=== PATIENT | female | born 1985 | race Caucasian/White ===

== ENCOUNTER 2019-12-27 08:20 | Outpatient (REF) | payer OTHER, SELFPAY ==
[2019-12-27 10:07] LABS: Hemoglobin 13.1 g/dl (12.0-16.0); MANUAL DIFF FLAG SCAN; PLT CLUMP 1; Red Cell Distribution Width 13.7 % (11.0-16.0); SCAN SMEAR FLAG 1
[2019-12-27 10:08] LABS: Basophils Absolute Auto 0.1 X10*3/uL (0.0-0.2); Basophils Percent Auto 0.6 % (0-2); Eosinophils Absolute Auto 0.1 X10*3/uL (0.0-0.4); Eosinophils Percent Auto 1.8 % (0-4); Hematocrit 40.3 % (37-47); Imm Gran Abs Auto 0.04 X10*3/uL (0.00-0.03); Imm Gran Pct Auto 0.5 % (0.0-0.4); Lymphocytes Absolute Auto 2.4 X10*3/uL (1.2-4.9); Lymphocytes Percent Auto 30.8 % (20-40); Mean Corpuscular HGB Conc 32.5 g/dl (31.0-35.0); Mean Corpuscular Hemoglobin 27.2 pg (27.0-33.0); Mean Corpuscular Volume 83.8 fL (80-98); Monocytes Absolute Auto 0.5 X10*3/uL (0.1-1.2); Monocytes Percent Auto 6.9 % (2-11); Neutrophils Absolute Auto 4.6 X10*3/uL (2.0-8.3); Neutrophils Percent Auto 59.4 % (45-73); Platelet Count 285 X10*3/uL (160-400); Red Blood Count 4.81 X10*6/uL (4.20-5.50); White Blood Count 7.7 X10*3/uL (4.8-10.8)
[2019-12-27 10:26] LABS: SLIDE REVIEW VERIFIED
[2019-12-27 10:39] LABS: Alanine Aminotransferase 8 U/L (0-31); Albumin Level 4.5 g/dL (3.5-5.0); Alkaline Phosphatase 58 U/L (39-117); Anion Gap 15 (12-20); Aspartate Amino Transferase 12 U/L (5-31); Bilirubin Total 0.2 mg/dL (0.0-1.0); Blood Urea Nitrogen 12 mg/dL (9-16); C Reactive Protein 2.78 mg/dL (< or = 0.50); Calcium 9.6 mg/dL (8.4-10.2); Carbon Dioxide 21 mmol/L (22-29); Chloride 106 mmol/L (96-108); Estimated Glomerular Filt Rate > 60; Glucose Random 85 mg/dL (60-115); Sodium 138 mmol/L (135-145); Total Protein 8.1 g/dL (6.5-8.0)
[2019-12-27 10:55] LABS: Erythrocyte Sedimentation Rate 21 MM/HR (0-20); Ferritin 12 ng/mL (10-122)
[2019-12-29 08:56] LABS: HBS Num1 20.11 mIU/mL (0-7.99); HBc Num1 0.08 S/CO (0.00-0.79); HBsAGNum1 0.14 S/CO (0.00-0.99); Hepatitis B Core Antibody Nonreactive (Nonreactive); Hepatitis B Surface Antigen Negative (Negative); ~Hepatitis B Surface Antibody REACTIVE (Nonreactive)
[2019-12-29 09:52] LABS: ~Hepatitis C Antibody Nonreactive (Nonreactive)
[2019-12-29 13:52] LABS: EBV-NA IgG Index >600.00 U/mL; EBV-VCA IgG Ab >750.00 U/mL; EBV-VCA IgM Ab <36.00 U/mL
[2019-12-29 20:05] LABS: Vitamin B12 > 2000 pg/mL (200-900)
[2019-12-31 02:56] LABS: Zinc 68 mcg/dL (60-130)
[2019-12-31 05:46] LABS: Hepatitis A Antibody IgM 0.14 Index (0-0.79); ~Hepatitis A Antibody IgM Nonreactive (Nonreactive)
[2020-01-01 13:06] LABS: Vitamin D 25-OH, D2 <4 ng/mL; Vitamin D 25-OH, D3 25 ng/mL; Vitamin D 25-OH, Total 25 ng/mL (30-100)
[2020-01-02 10:37] LABS: Adalimumab Drug Level <0.8 mcg/mL; Anti-Adalimumab Antibody >100 AU (<10)
== END 2019-12-27 08:21 | disposition home or self-care (01) ==
LOC: HO.LAB 08:20
PROVIDERS: Visit Provider Internal Medicine Gastroenterology
DX: K50.80 Crohn's disease of both small and large intestine without complications (principal)
CPT/HCPCS: 36415; 80053; 80145; 82306; 82607; 82728; 83520; 84630; 85025; 85652; 86140; 86664; 86665; 86704; 86706; 86709; 86787; 86803; 87340; 88365

== ENCOUNTER 2019-12-30 08:40 | Outpatient (REF) | payer OTHER, SELFPAY ==
[2019-12-30 11:53] LABS: Vitamin B12 > 2000 pg/mL (200-900)
[2019-12-31 05:39] LABS: HBS Num1 19.92 mIU/mL (0-7.99); ~Hepatitis B Surface Antibody REACTIVE (Nonreactive)
[2020-01-01 09:17] LABS: EBV-VCA IgG Ab >750.00 U/mL; EBV-VCA IgM Ab <36.00 U/mL
[2020-01-06 11:21] LABS: Vitamin D 25-OH, D2 <4 ng/mL; Vitamin D 25-OH, D3 21 ng/mL; Vitamin D 25-OH, Total 21 ng/mL (30-100)
== END 2019-12-30 08:41 | disposition home or self-care (01) ==
LOC: HO.LAB 08:40
PROVIDERS: Visit Provider Internal Medicine Gastroenterology
DX: K50.80 Crohn's disease of both small and large intestine without complications (principal); R76.11 Nonspecific reaction to tuberculin skin test without active tuberculosis
CPT/HCPCS: 82306; 82607; 86664; 86665; 86706

== ENCOUNTER 2019-12-31 20:35 | Outpatient (REF) | payer OTHER, SELFPAY ==
[2020-01-01 11:51] LABS: CDIFF Ag Negative (Negative); CDIFF Internal ctrl Dots and bkg OK (V); CDiff Toxin Negative (Negative)
[2020-01-08 17:17] LABS: Calprotectin, Fecal 614 mcg/g
== END 2019-12-31 20:36 | disposition home or self-care (01) ==
LOC: HO.LNP 20:35
PROVIDERS: Visit Provider Internal Medicine Gastroenterology
DX: K50.80 Crohn's disease of both small and large intestine without complications (principal)
CPT/HCPCS: 83993; 87324; 87449

== ENCOUNTER 2020-01-01 07:06 | Outpatient (REF) | payer OTHER, SELFPAY | END 2020-01-01 07:07 | disposition home or self-care (01) | LOC: HO.LAB 07:06 | PROVIDERS: Visit Provider Internal Medicine Gastroenterology | DX: Z11.1 Encounter for screening for respiratory tuberculosis (principal) | CPT/HCPCS: 86481 ==

== ENCOUNTER 2020-01-16 08:42 | Outpatient (REF) | payer OTHER, SELFPAY ==
--- NOTE | 2020-01-16 10:05 | MR_ITS ---
EXAMINATION: MRI OF THE ABDOMEN AND PELVIS WITH AND WITHOUT CONTRAST CLINICAL INFORMATION: Crohn's disease of the small and large bowel. COMPARISON: None TECHNIQUE: Sagittal, axial and coronal sequences through the abdomen and pelvis with and without contrast. The patient received 7.5 mL of intravenous Gadavist gadolinium contrast. FINDINGS: Lung bases are clear. The liver is normal in size, shape and attenuation. There is an 8 x 12 mm peripheral or subcapsular lesion in the medial segment of the left lobe of the liver. This is low signal on T1 and iso to slightly high signal on T2-weighted sequences. This demonstrates signal loss on out of phase gradient echo sequences and decreased enhancement compared to the remainder of the liver. There are 2 additional liver lesions seen adjacent to the gallbladder. These measure 6 x 9 mm in the left lobe axial image 63 and 7 x 9 mm in the right lobe. These are difficult to visualize on noncontrast-enhanced sequences. These also are most apparent on axial gradient echo out of phase sequences. The larger lesion in the right lobe may be low signal on T1-weighted sequences precontrast. All 3 lesions are most evident on gradient echo out of phase sequences suggestive of signal loss due to intralesional fat and on postgadolinium sequences. This would favor an adenoma. The gallbladder is normal. There is no biliary duct dilatation. The pancreas is normal. The spleen is normal. The adrenal glands and kidneys are normal. The bladder is normal. The uterus and adnexa are normal. There are slightly tethered or angulated loops of distal small bowel in the right lower quadrant and pelvis. There is question of a small focus of wall enhancement and luminal narrowing or mild stricture, for example axial post contrast image 54 - 61 series 24 questionable for active inflammatory bowel disease. There is prominent fat surrounding the distal ileum. There is question of mild wall thickening of the distal colon and rectum. No wall enhancement is seen. There are prominent perirectal lymph nodes. Small and large bowel is otherwise unremarkable. No evidence of obstruction, abscess or fistula is seen. The appendix is not identified. The stomach is unremarkable. No ascites or adenopathy is seen. Vascular structures are unremarkable. No hernia is seen. Bony structures are unremarkable. MR/MR abdomen wo/w con IMPRESSION: Angulated slightly tethered loops of distal small bowel in the right lower quadrant and prominent fat suggestive of evidence of inflammatory bowel disease. There is a short segment of distal ileum that demonstrates mild luminal narrowing and wall enhancement questionable for active disease. Prominent perirectal lymph nodes. Question mild wall thickening of the distal colon and rectum. No wall enhancement of the colon is seen. Three small liver lesions difficult to characterize as not reliably identified on all sequences.
== END 2020-01-16 08:43 | disposition home or self-care (01) ==
LOC: HO.MRI 08:42
PROVIDERS: Visit Provider Internal Medicine Gastroenterology
DX: K50.80 Crohn's disease of both small and large intestine without complications (principal)
CPT/HCPCS: 72197; 74183; A9585

== ENCOUNTER 2020-02-11 11:51 | Outpatient (REF) | payer OTHER, SELFPAY ==
[2020-02-11 12:29] LABS: Basophils Percent Auto 0.3 % (0-2); Eosinophils Absolute Auto 0.1 X10*3/uL (0.0-0.4); Hematocrit 38.2 % (37-47); Hemoglobin 12.6 g/dl (12.0-16.0); Imm Gran Abs Auto 0.04 X10*3/uL (0.00-0.03); Imm Gran Pct Auto 0.4 % (0.0-0.4); Lymphocytes Absolute Auto 2.5 X10*3/uL (1.2-4.9); Lymphocytes Percent Auto 23.1 % (20-40); MANUAL DIFF FLAG SCAN; Mean Corpuscular Hemoglobin 27.5 pg (27.0-33.0); Mean Corpuscular Volume 83.2 fL (80-98); Monocytes Absolute Auto 0.6 X10*3/uL (0.1-1.2); Monocytes Percent Auto 5.4 % (2-11); Neutrophils Absolute Auto 7.5 X10*3/uL (2.0-8.3); Neutrophils Percent Auto 69.8 % (45-73); PLT CLUMP 1; Red Blood Count 4.59 X10*6/uL (4.20-5.50); Red Cell Distribution Width 13.3 % (11.0-16.0); SCAN SMEAR FLAG 1
[2020-02-11 12:48] LABS: Alanine Aminotransferase 10 U/L (0-31); Albumin Level 4.1 g/dL (3.5-5.0); Alkaline Phosphatase 61 U/L (39-117); Anion Gap 11 (12-20); Aspartate Amino Transferase 10 U/L (5-31); Bilirubin Total 0.2 mg/dL (0.0-1.0); Blood Urea Nitrogen 7 mg/dL (9-16); C Reactive Protein 1.87 mg/dL (< or = 0.50); Calcium 8.6 mg/dL (8.4-10.2); Carbon Dioxide 24 mmol/L (22-29); Chloride 105 mmol/L (96-108); Estimated Glomerular Filt Rate > 60; Glucose Random 86 mg/dL (60-115); Platelet Count 375 X10*3/uL (160-400); Potassium 3.4 mmol/l (3.3-5.1); Sodium 137 mmol/L (135-145); Total Protein 7.1 g/dL (6.5-8.0); White Blood Count 10.7 X10*3/uL (4.8-10.8)
[2020-02-11 12:49] LABS: SLIDE REVIEW VERIFIED
== END 2020-02-11 11:52 | disposition home or self-care (01) ==
LOC: HO.MDS 11:51
PROVIDERS: Visit Provider Internal Medicine Gastroenterology
DX: K50.90 Crohn's disease, unspecified, without complications (principal)
CPT/HCPCS: 36415; 80053; 85025; 86140; 96365; J3358

== ENCOUNTER → 2020-05-24 11:14 | Outpatient (BNVA) | payer OTHER, SELFPAY | PROVIDERS: Visit Provider Internal Medicine Gastroenterology ==

== ENCOUNTER 2020-06-01 06:21 | Outpatient (REF) | payer OTHER, SELFPAY ==
[2020-06-01 07:00] LABS: MANUAL DIFF FLAG NO
[2020-06-01 07:07] LABS: Basophils Absolute Auto 0.1 X10*3/uL (0.0-0.2); Basophils Percent Auto 0.7 % (0-2); Eosinophils Absolute Auto 0.3 X10*3/uL (0.0-0.4); Eosinophils Percent Auto 3.7 % (0-4); Hematocrit 38.3 % (37-47); Hemoglobin 12.8 g/dl (12.0-16.0); Imm Gran Abs Auto 0.03 X10*3/uL (0.00-0.03); Imm Gran Pct Auto 0.4 % (0.0-0.4); Lymphocytes Absolute Auto 2.7 X10*3/uL (1.2-4.9); Lymphocytes Percent Auto 38.3 % (20-40); Mean Corpuscular HGB Conc 33.4 g/dl (31.0-35.0); Mean Corpuscular Hemoglobin 27.8 pg (27.0-33.0); Mean Corpuscular Volume 83.1 fL (80-98); Mean Platelet Volume 9.8 fL (9.4-12.3); Monocytes Absolute Auto 0.5 X10*3/uL (0.1-1.2); Monocytes Percent Auto 7.3 % (2-11); Neutrophils Absolute Auto 3.5 X10*3/uL (2.0-8.3); Neutrophils Percent Auto 49.6 % (45-73); Platelet Count 318 X10*3/uL (160-400); Red Blood Count 4.61 X10*6/uL (4.20-5.50); Red Cell Distribution Width 13.9 % (11.0-16.0); White Blood Count 7.1 X10*3/uL (4.8-10.8)
[2020-06-01 07:24] LABS: Alanine Aminotransferase 7 U/L (0-31); Alkaline Phosphatase 63 U/L (39-117); Anion Gap 14 (12-20); Aspartate Amino Transferase 12 U/L (5-31); Bilirubin Total 0.5 mg/dL (0.0-1.0); Blood Urea Nitrogen 9 mg/dL (9-16); Calcium 9.1 mg/dL (8.4-10.2); Carbon Dioxide 21 mmol/L (22-29); Chloride 108 mmol/L (96-108); Estimated Glomerular Filt Rate > 60; Glucose Random 113 mg/dL (60-115); Potassium 3.6 mmol/L (3.3-5.1); Sodium 139 mmol/L (135-145)
[2020-06-01 07:55] LABS: Ferritin 20 ng/mL (10-122); Vitamin D 25-OH Total 42.7 ng/mL (>30)
[2020-06-01 08:13] LABS: Erythrocyte Sedimentation Rate 14 MM/HR (0-20)
[2020-06-02 14:12] LABS: IgA 114 mg/dL (47-310); IgG 1119 mg/dL (600-1640); IgM 30 mg/dL (50-300)
[2020-06-02 22:07] LABS: Transglutaminase Ab IgG 1 U/mL; Transglutaminase IgA 1 U/mL
[2020-06-04 01:12] LABS: Zinc 62 mcg/dL (60-130)
== END 2020-06-01 06:22 | disposition home or self-care (01) ==
LOC: HO.LAB 06:21
PROVIDERS: Visit Provider Internal Medicine Gastroenterology
DX: R10.33 Periumbilical pain (principal); G89.29 Other chronic pain; K50.80 Crohn's disease of both small and large intestine without complications
CPT/HCPCS: 36415; 80053; 80299; 82306; 82542; 82728; 82784; 83516; 84630; 85025; 85652

== ENCOUNTER → 2020-09-17 09:27 | Outpatient (BNVA) | payer OTHER, SELFPAY | PROVIDERS: Visit Provider Internal Medicine Gastroenterology ==

== ENCOUNTER 2020-10-22 08:49 | Outpatient (REF) | payer OTHER, SELFPAY | END 2020-10-22 08:50 | disposition home or self-care (01) | LOC: HO.MDS 08:49 | PROVIDERS: Visit Provider Internal Medicine Gastroenterology | DX: K50.90 Crohn's disease, unspecified, without complications (principal) | CPT/HCPCS: 96365; J3380 ==

== ENCOUNTER 2020-11-05 07:08 | Outpatient (REF) | payer OTHER, SELFPAY | END 2020-11-05 07:09 | disposition home or self-care (01) | LOC: HO.MDS 07:08 | PROVIDERS: Visit Provider Internal Medicine Gastroenterology | DX: K50.90 Crohn's disease, unspecified, without complications (principal) | CPT/HCPCS: 96365; J3380 ==

== ENCOUNTER 2020-12-03 07:17 | Outpatient (REF) | payer OTHER, SELFPAY | END 2020-12-03 07:18 | disposition home or self-care (01) | LOC: HO.MDS 07:17 | PROVIDERS: Visit Provider Internal Medicine Gastroenterology | DX: K50.90 Crohn's disease, unspecified, without complications (principal) | CPT/HCPCS: 96365; J3380 ==

== ENCOUNTER 2020-12-22 06:34 | Outpatient (REF) | payer OTHER, SELFPAY ==
[2020-12-23 08:38] LABS: CDiff Gene PCR NEGATIVE (Negative)
[2020-12-25 13:51] LABS: TS Negative Control Passed; TS Panel A 0; TS Panel B 0; TS Positive Control Passed; TSpotTB Negative (SeeBelow)
[2020-12-30 01:21] LABS: Calprotectin, Fecal 132 mcg/g
== END 2020-12-22 06:35 | disposition home or self-care (01) ==
LOC: HO.LAB 06:34
PROVIDERS: Visit Provider Internal Medicine Gastroenterology
DX: K50.80 Crohn's disease of both small and large intestine without complications (principal); Z11.1 Encounter for screening for respiratory tuberculosis
CPT/HCPCS: 36415; 83993; 86481; 87493

== ENCOUNTER 2020-12-23 06:26 | Outpatient (REF) | payer OTHER, SELFPAY ==
[2020-12-23 06:57] LABS: Basophils Percent Auto 0.5 % (0-2); Eosinophils Absolute Auto 0.1 X10*3/uL (0.0-0.4); Eosinophils Percent Auto 1.6 % (0-4); Hematocrit 35.7 % (37-47); Hemoglobin 11.9 g/dl (12.0-16.0); Imm Gran Abs Auto 0.07 X10*3/uL (0.00-0.03); Imm Gran Pct Auto 0.8 % (0.0-0.4); MANUAL DIFF FLAG SCAN; Mean Corpuscular HGB Conc 33.3 g/dl (31.0-35.0); Mean Corpuscular Hemoglobin 27.8 pg (27.0-33.0); Mean Corpuscular Volume 83.4 fL (80-98); Mean Platelet Volume 9.3 fL (9.4-12.3); Monocytes Absolute Auto 0.5 X10*3/uL (0.1-1.2); Monocytes Percent Auto 6.2 % (2-11); Neutrophils Absolute Auto 3.9 X10*3/uL (2.0-8.3); Neutrophils Percent Auto 44.9 % (45-73); Platelet Count 386 X10*3/uL (160-400); Red Blood Count 4.28 X10*6/uL (4.20-5.50); Red Cell Distribution Width 13.2 % (11.0-16.0); SCAN SMEAR FLAG 1; White Blood Count 8.7 X10*3/uL (4.8-10.8)
[2020-12-23 07:14] LABS: Alanine Aminotransferase 8 U/L (0-31); Alkaline Phosphatase 54 U/L (39-117); Anion Gap 12 (12-20); Aspartate Amino Transferase 9 U/L (5-31); Bilirubin Total 0.4 mg/dL (0.0-1.0); Blood Urea Nitrogen 9 mg/dL (9-16); C Reactive Protein 1.95 mg/dL (< or = 0.50); Calcium 9.1 mg/dL (8.4-10.2); Carbon Dioxide 24 mmol/L (22-29); Chloride 105 mmol/L (96-108); Estimated Glomerular Filt Rate > 60; Glucose Random 94 mg/dL (60-115); Iron 108 mcg/dL (30-160); Percent Iron Saturation 21 % (15-50); Potassium 3.4 mmol/L (3.3-5.1); Sodium 138 mmol/L (135-145); Total Iron Binding Capacity 509 mcg/dL (228-428); Total Protein 7.1 g/dL (6.5-8.0); Unsaturated Iron Binding 401 ug/dL
[2020-12-23 07:21] LABS: SLIDE REVIEW VERIFIED
[2020-12-23 07:27] LABS: Erythrocyte Sedimentation Rate 14 MM/HR (0-20)
[2020-12-23 07:35] LABS: Ferritin 23 ng/mL (10-122); TSH reflex Free T4 3.83 uIU/mL (0.32-4.0); Vitamin D 25-OH Total 23.7 ng/mL (>30)
[2020-12-23 07:53] LABS: Folate 7.9 ng/mL (> or = 4.0); Vitamin B12 265 pg/mL (200-900)
[2020-12-26 15:37] LABS: Zinc 58 mcg/dL (60-130)
[2020-12-28 12:45] LABS: Nicotinamide <20 ng/mL; Vit B3 - Nicotinic Acid <20 ng/mL
[2020-12-28 14:51] LABS: Vitamin C 0.2 mg/dL (0.3-2.7)
[2020-12-29 04:16] LABS: Vitamin A 94 mcg/dL (38-98)
[2020-12-29 17:46] LABS: Vitamin B6 4.3 ng/mL (2.1-21.7)
[2020-12-29 17:56] LABS: Vitamin B5 (Pantothenic Acid) <40 ng/mL (<275)
[2020-12-29 19:01] LABS: Alpha-Tocopherol 17.2 mg/L (5.7-19.9); Beta-Gamma Tocopherol <1.0 mg/L (<=4.3)
[2020-12-30 23:17] LABS: Vitamin K1 246 pg/mL (130-1500)
== END 2020-12-23 06:27 | disposition home or self-care (01) ==
LOC: HO.LAB 06:26
PROVIDERS: Visit Provider Internal Medicine Gastroenterology
DX: K50.80 Crohn's disease of both small and large intestine without complications (principal); K75.81 Nonalcoholic steatohepatitis (NASH)
CPT/HCPCS: 36415; 80053; 82180; 82306; 82607; 82728; 82746; 83540; 84207; 84443; 84446; 84590; 84591; 84597; 84630; 85025; 85652; 86140

== ENCOUNTER 2021-01-28 06:59 | Outpatient (REF) | payer OTHER, SELFPAY | END 2021-01-28 07:00 | disposition home or self-care (01) | LOC: HO.MDS 06:59 | PROVIDERS: Visit Provider Internal Medicine Gastroenterology | DX: K50.90 Crohn's disease, unspecified, without complications (principal) | CPT/HCPCS: 36415; 80280; 82542; 96365; J3380 ==

== ENCOUNTER 2021-03-25 07:35 | Outpatient (REF) | payer OTHER, SELFPAY | END 2021-03-25 07:36 | disposition home or self-care (01) | LOC: HO.MDS 07:35 | PROVIDERS: Visit Provider Internal Medicine Gastroenterology | DX: K50.90 Crohn's disease, unspecified, without complications (principal) | CPT/HCPCS: 96365; J3380 ==

== ENCOUNTER 2021-05-20 07:29 | Outpatient (REF) | payer OTHER, SELFPAY | END 2021-05-20 07:30 | disposition home or self-care (01) | LOC: HO.MDS 07:29 | PROVIDERS: Visit Provider Internal Medicine Gastroenterology | DX: K50.90 Crohn's disease, unspecified, without complications (principal) | CPT/HCPCS: 96365; J3380 ==

== ENCOUNTER 2021-06-22 06:26 | Outpatient (REF) | payer OTHER, SELFPAY ==
[2021-06-22 11:25] LABS: MANUAL DIFF FLAG NO
[2021-06-22 11:45] LABS: Basophils Percent Auto 0.6 % (0-2); Eosinophils Absolute Auto 0.2 X10*3/uL (0.0-0.4); Eosinophils Percent Auto 2.9 % (0-4); Hematocrit 38.3 % (37.0-47.0); Hemoglobin 12.7 g/dl (12.0-16.0); Imm Gran Abs Auto 0.02 X10*3/uL (0.00-0.03); Imm Gran Pct Auto 0.3 % (0.0-0.4); Immature Retic Fraction 9.1 % (3.0-15.9); Lymphocytes Absolute Auto 2.9 X10*3/uL (1.2-4.9); Lymphocytes Percent Auto 44.4 % (20-40); Mean Corpuscular HGB Conc 33.2 g/dl (31.0-35.0); Mean Corpuscular Hemoglobin 28.3 pg (27.0-33.0); Mean Corpuscular Volume 85.3 fL (80.0-98.0); Mean Platelet Volume 10.3 fL (9.4-12.3); Monocytes Absolute Auto 0.5 X10*3/uL (0.1-1.2); Monocytes Percent Auto 7.6 % (2-11); Neutrophils Absolute Auto 2.9 x10*3/uL (2.0-8.3); Neutrophils Percent Auto 44.2 % (45-73); Platelet Count 390 X10*3/uL (160-400); Red Blood Count 4.49 X10*6/uL (4.20-5.50); Red Cell Distribution Width 13.6 % (11.0-16.0); Retic HGB Equivalent 33.3 pg (30.0-35.0); Reticulocyte Percent 1.2 % (0.5-1.8); Reticulocytes Absolute 0.053 X10*6/uL (0.026-0.095); White Blood Count 6.5 X10*3/uL (4.8-10.8)
[2021-06-22 12:20] LABS: TSH reflex Free T4 2.76 uIU/mL (0.32-4.0)
[2021-06-22 12:37] LABS: Erythrocyte Sedimentation Rate 13 MM/HR (0-20)
[2021-06-22 12:42] LABS: Alanine Aminotransferase 11 U/L (0-31); Alkaline Phosphatase 58 U/L (39-117); Anion Gap 11 (12-20); Aspartate Amino Transferase 12 U/L (5-31); Bilirubin Total 0.5 mg/dL (0.0-1.0); Blood Urea Nitrogen 9 mg/dL (9-16); C Reactive Protein 1.59 mg/dL (< or = 0.50); Calcium 9.1 mg/dL (8.4-10.2); Carbon Dioxide 23 mmol/L (22-29); Chloride 107 mmol/L (96-108); Cholesterol 192 mg/dL; Estimated Glomerular Filt Rate > 60; Glucose Fasting 89 mg/dL (60-99); HDL Cholesterol 86 mg/dL; Iron 48 mcg/dL (30-160); LDL Cholesterol Calculated 94 mg/dl; Percent Iron Saturation 11 % (15-50); Potassium 4.1 mmol/L (3.3-5.1); Sodium 137 mmol/L (135-145); Total Iron Binding Capacity 442 mcg/dL (228-428); Triglycerides 63 mg/dL; Unsaturated Iron Binding 394 ug/dL
[2021-06-27 14:15] LABS: Prometheus Anser VDZ SEE REPORT IN EMR
== END 2021-06-22 06:27 | disposition home or self-care (01) ==
LOC: HO.HMGCLDS 06:26
PROVIDERS: PCP Internal Medicine; Visit Provider Internal Medicine Gastroenterology
DX: Z00.00 Encounter for general adult medical examination without abnormal findings (principal); K50.80 Crohn's disease of both small and large intestine without complications; K75.81 Nonalcoholic steatohepatitis (NASH)
CPT/HCPCS: 36415; 80053; 80061; 80280; 82542; 83540; 84443; 85025; 85045; 85652; 86140

== ENCOUNTER 2021-07-01 07:13 | Outpatient (REF) | payer OTHER, SELFPAY | END 2021-07-01 07:14 | disposition home or self-care (01) | LOC: HO.MDS 07:13 | PROVIDERS: Visit Provider Internal Medicine Gastroenterology | DX: K50.80 Crohn's disease of both small and large intestine without complications (principal) | CPT/HCPCS: 96365; J3380 ==

== ENCOUNTER → 2021-08-04 07:00 | Outpatient (REF) | payer OTHER, SELFPAY ==
--- NOTE | 2021-08-04 07:07 | CA_ITS ---
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 Study Quality: Good ECG Rhythm: Sinus Conclusions: - The left ventricular systolic function is normal. The calculated ejection fraction is 66% by biplane method. - No obvious valvular pathology seen on this study. Findings Left Ventricle Normal left ventricular cavity size. There is normal left ventricular wall thickness. The left ventricular systolic function is normal. The calculated ejection fraction is 66% by biplane method. There is no evidence of regional wall motion abnormalities. Diastolic function is normal for age. LV peak global longitudinal strain -22.6% (normal). Right Ventricle Normal right ventricular cavity size and systolic function. Atria Both atria are normal in size. Aortic Valve There is a normal trileaflet aortic valve. There is no aortic valve stenosis. There is no aortic valve regurgitation. Mitral Valve The mitral valve appears normal. There is trace mitral valve regurgitation. There is no mitral valve stenosis. Pulmonic Valve The pulmonic valve is likely normal. Tricuspid Valve Normal tricuspid valve structure. There is trace tricuspid valve regurgitation. The pulmonary artery systolic pressure is normal. Great Vessels The asc aorta is normal in size. Venous The inferior vena cava is normal in size and collapses greater than 50% with inspiration. Pericardium/Pleural There is no evidence of pericardial effusion. Prior Study Comparison No prior study available for comparison. Recommendations, Care & Conclusions No obvious valvular pathology seen on this study. Measurements 2D Linear Measurements IVSd: 0.44 0.6-0.9/0.6-1.0 cm LVIDd: 4.92 3.9-5.3/4.2-5.9 cm LVIDd Index: 2.81 2.4-3.2/2.2-3.1 cm/m2 LVIDs: 3.00 2.0-3.6 cm LVPWd: 0.39 0.7-1.1 cm LA Diam: 3.20 2.7-3.8/3.0-4.0 cm LAIDs Index: 1.83 1.5-2.3 cm/m2 LV Mass: 73.85 67-162/88-224 g LV Mass Index: 42.20 43-95/49-115 g/m2 LVOT Diam: 1.90 3.0+(-)1.3 cm 2D Systolic Function EF 4C: 67.40 >55% EF 2C: 65.70 >55% EF BiP: 65.90 >55% Mitral Valve MV Pk E: 0.99 MV PK A: 0.48 MV Decel Time: 163.00 E/A: 2.00 E'Lateral: 12.50 E'Medial: 9.68 E/E' Med: 10.20 E/E' Lat: 7.90 PHT: 48.00 MVA PHT: 4.58 Decel Travis: 6.08 Aortic Valve AoV Pk Gavin: 1.33 AoV Mn Gavin: 0.95 AoV VTI: 0.28 AoV Pk Grad: 7.00 Aov Mn Grad: 4.00 IVIS Cont.VTI: 2.28 LVOT LVOT Pk Gavin: 1.12 LVOT Mn Gavin: 0.84 LVOT VTI: 0.22 LVOT Pk Grad: 5.00 LVOT Mn Grad: 3.00 LVOT Diam: 1.90 LVOT Area: 2.84 Diastolic Function MV Pk E: 0.99 MV Pk A: 0.48 E/A: 2.00 E'Medial: 9.68 E/E' Med: 10.20 E' Laterial: 12.50 E/E' Lat: 7.90 Right Ventricle TAPSE (mm): 22.40 TVS' Gavin: 11.70 Tricuspid Valve RA Press: 3.00 Great Vessels Aorta Sinus of Valsalva: 2.46 2.0-3.[address] Ridge: 2.56 1.7-3.4 cm Ao Asc: 2.80 2.1-3.4 cm Ao Desc: 1.70 Pulmonary Veins Pulm Vein S/D 1.20 Pulmonary Valve PV Pk Gavin: 1.08 Peak PV Grad: 5.00 Updated in Other Vendor System with Status of Final Reginaldo Allred MD electronically signed on 08/06/2021 12:37:40 PM with status of Final
== END ==
LOC: HO.CARD 07:00
PROVIDERS: PCP Internal Medicine; Visit Provider Internal Medicine
DX: R00.2 Palpitations (principal); R00.0 Tachycardia, unspecified
CPT/HCPCS: 93306; 93356

== ENCOUNTER → 2021-08-12 10:57 | Outpatient (BNVA) | payer OTHER, SELFPAY | PROVIDERS: PCP Internal Medicine; Visit Provider Internal Medicine Gastroenterology | DX: E55.9 Vitamin D deficiency, unspecified (principal) ==

== ENCOUNTER 2021-10-14 09:40 | Outpatient (REF) | payer OTHER, SELFPAY ==
[2021-10-14 10:58] LABS: Hemoglobin 13.4 g/dl (12.0-16.0); Mean Corpuscular HGB Conc 32.7 g/dl (31.0-35.0); Mean Corpuscular Hemoglobin 27.7 pg (27.0-33.0); Mean Corpuscular Volume 84.7 fL (80.0-98.0); Mean Platelet Volume 9.8 fL (9.4-12.3); Platelet Count 395 X10*3/uL (160-400); Red Blood Count 4.84 X10*6/uL (4.20-5.50); Red Cell Distribution Width 13.6 % (11.0-16.0); White Blood Count 6.6 X10*3/uL (4.8-10.8)
[2021-10-14 11:37] LABS: TSH reflex Free T4 1.21 uIU/mL (0.32-4.0)
[2021-10-19 15:42] LABS: Metanephrine, Free <25 pg/mL (<=57); Normetanephrines, Free 79 pg/mL (<=148); Total Metanephrine, Free 79 pg/mL (<=205)
== END 2021-10-14 09:41 | disposition home or self-care (01) ==
LOC: HO.LAB 09:40
PROVIDERS: PCP Internal Medicine; Visit Provider Internal Medicine Cardiovascular Disease
DX: Z00.00 Encounter for general adult medical examination without abnormal findings (principal); R00.2 Palpitations
CPT/HCPCS: 36415; 83835; 84443; 85027

== ENCOUNTER → 2021-11-10 07:45 | Outpatient (REF) | payer OTHER, SELFPAY ==
--- NOTE | 2021-11-10 07:47 | HM_ITS ---
TEST PERFORMED: Cardiac event monitoring. REQUESTING PHYSICIAN: Dr. Eller. ENROLLMENT PERIOD: 11/10/2021 to 12/10/2021; 30 days. FINDINGS: In the above monitoring period, underlying rhythm is sinus and sinus tachycardia. Ventricular rate ranged from 69 to 155 beats per minute. There is rare supraventricular and ventricular ectopy with minimal burden. Symptoms documented include chest pain, palpitations, shortness of breath, racing, fluttering at different times. These correlate with sinus rhythm and sinus tachycardia. CONCLUSION: Study positive for sinus rhythm, sinus tachycardia, rare supraventricular and ventricular ectopy. Reginaldo Allred MD HS/CHIARA / [id number] MTDD
--- NOTE | 2021-11-10 07:47 | CA_ITS ---
Acquisition Time: 2021-11-10 08:04:41 Total Exercise Time: 00:07:34 Test Indications: CP, SOB Medications: SEE CHART Protocol: LORRIE Max HR: 164 BPM 88% of Pred: 186 BPM Max BP: 130/062 mmHG Max Work Load: 9.4 METS Exercise stress test with exercise 7 min 34 sec of Lorrie protocol, achieving 88% MPHR with request to stop due to fatigue, with report of mild sob and a tight feeling in chest, denies chest pain, pressure or palpitations, without arrythmia, with normotensive response to exercise, without EKG changes meeting criteria for ischemia. In recovery her sob and chest tightness improved and resolved. She does report hx of asthma. Test reviewed with Dr Allred Referred By: Yaniv Eller Overread By: LEONIE RAPHAEL
== END ==
LOC: HO.CARD 07:45
PROVIDERS: Visit Provider Internal Medicine Cardiovascular Disease
DX: R00.2 Palpitations (principal)
CPT/HCPCS: 93017; 93270

== ENCOUNTER 2021-12-20 09:29 | Day surgery (SDC) | payer OTHER, SELFPAY ==
[2021-12-15 14:22] VITALS: BMI 26.4
--- NOTE | 2021-12-19 09:38 | P.CONAN_ITS ---
Documented by User: Licha Fu NP 12/19/21 09:41 HPI - Anesthesia Eval Consult details Narrative: 36yo F for Upper Endoscopy and Colonoscopy PMFSH Active Problems Active Problems: All Active Problems (Updated 08/12/21 @ 12:37 by Uriel Serna MD) Early satiety (Acute) Vitamin D deficiency (Acute) Plantar wart, left foot (Acute) Tachycardia (Acute) Palpitations (Acute) Normal pelvic exam (Acute) ADHD (Acute) Bipolar 1 disorder (Acute) Annual physical exam (Acute) Crohn's disease of both small and large intestine (Acute) Past Medical History Medical History ADHD Anal fissure Annual physical exam Bipolar 1 disorder Crohn's disease of both small and large intestine Normal pelvic exam Palpitations Plantar wart, left foot Tachycardia Family History Family History Father Arthritis Substance use disorder Mental health disorder Mother History of cancer Celiac disease Surgical History Surgical History History of colonoscopy Hx of endoscopy Social History Social History Household Members: Significant Other Household Members Other:: works in [place], will get in 07/2021 Housing: Apartment Alcohol intake: current Alcohol intake frequency: a few times a month Patient Tobacco Use Status: Never used Tobacco e-Cigarette/Vaping Use: Never Used Use of substances other than those prescribed or required for medical reasons: No Are you DNR?: No Advance Directives: No Advance Directives Information Provided: Yes service: No Current occupational status: employed Cognitive needs: No Hearing needs: No Vision needs: No Meds Allergies Allergy/AdvReac Type Severity Reaction Status Date / Time clindamycin AdvReac Mild Difficulty Verified 08/12/21 10:57 Swallowing Home Medications Medication Instructions Recorded Confirmed Last Taken Type aripiprazole 2 mg tablet (Abilify) 2 mg PO BEDTIME 12/26/19 12/20/21 Unknown History dextroamphetamine-amphetamine 5 mg 20 mg PO DAILY 12/26/19 12/20/21 Unknown History tablet (Adderall) lamotrigine 25 mg tablet 25 mg PO DAILY 09/17/20 12/20/21 Unknown History vedolizumab 300 mg intravenous 300 mg IV Q6W 06/21/21 12/20/21 Unknown History solution (Entyvio) Exam Exam Date and Time: December 19, 2021 0938 Height,Weight and Vital Signs: Height 5 ft 4 in Weight 70 kg Pertinent Lab Results Pertinent Lab Results: Laboratory Tests 06/22/21 10/14/21 06:55 09:54 WBC 6.6 Hgb 13.4 Hct 41.0 Plt Count 395 Sodium 137 Potassium 4.1 D Chloride 107 Carbon Dioxide 23 BUN 9 Creatinine 0.71 Assessment and Plan Assessment Anesthesia Assessment: Chart Reviewed Documented by User: Kashmir Mccullough MD 12/20/21 10:26 [facility] Past Medical History Medical History ADHD Anal fissure Annual physical exam Bipolar 1 disorder Crohn's disease of both small and large intestine Normal pelvic exam Palpitations Plantar wart, left foot Tachycardia Family History Family History Father Arthritis Substance use disorder Mental health disorder Mother History of cancer Celiac disease Family history of problems with anesthesia: No Surgical History Surgical History History of colonoscopy Hx of endoscopy History of Problems with Anesthesia: No Social History Social History Household Members: Significant Other Household Members Other:: works in [place], will get in 07/2021 Housing: Apartment Alcohol intake: current Alcohol intake frequency: a few times a month Patient Tobacco Use Status: Never used Tobacco e-Cigarette/Vaping Use: Never Used Use of substances other than those prescribed or required for medical reasons: No Are you DNR?: No Advance Directives: No Advance Directives Information Provided: Yes service: No Current occupational status: employed Cognitive needs: No Hearing needs: No Vision needs: No Meds Allergies Allergy/AdvReac Type Severity Reaction Status Date / Time clindamycin AdvReac Mild Difficulty Verified 08/12/21 10:57 Swallowing Home Medications Medication Instructions Recorded Confirmed Last Taken Type aripiprazole 2 mg tablet (Abilify) 2 mg PO BEDTIME 12/26/19 12/20/21 Unknown History dextroamphetamine-amphetamine 5 mg 20 mg PO DAILY 12/26/19 12/20/21 Unknown History tablet (Adderall) lamotrigine 25 mg tablet 25 mg PO DAILY 09/17/20 12/20/21 Unknown History vedolizumab 300 mg intravenous 300 mg IV Q6W 06/21/21 12/20/21 Unknown History solution (Entyvio) Exam Airway Mallampati Class: I TM Dist: >3cm Neck ROM: Full Assessment and Plan Assessment Anesthesia Assessment: Anesthesia Plan Discussed Final Anesthetic Review Family History of Problems with Anesthesia: No History of Problems with Anesthesia: No NPO: Yes ASA Class: II Final Preanesthetic Review: No Changes in Pt Med Stat, Meds/Allgs Chart Reviewed, Consent Obtained/Reviewed and Anes Risks/Benef Reviewed Patient Risk: Low Procedure Risk: Low Anesthetic Plan Anesthetic Plan: MAC: Disposition: Standard PACU
[2021-12-20 10:00] VITALS: BP 101/64; PULSE 73; RESP 16; TEMP 36.6; O2SAT 98; BMI 26.9
[2021-12-20 10:11] LABS: UPreg QC Valid YES; Urine Pregnancy NEGATIVE (NEGATIVE)
--- NOTE | 2021-12-20 10:26 | P.HPSUR_ITS ---
Pre-Procedural Eval Section A Date of Service: 12/20/21 Section B Chief Complaint: Early satiety,crohn's disease Relevant Family History (Specify if Yes): No Relevant Social History: None Present Medications: see Short Stay Collaborative assessment Medical History: Significant History (ADHD Anal fissure Annual physical exam Bipolar 1 disorder Crohn's disease of both small and large intestine Normal pel mahi exam Palpitations Plantar wart, left foot Tachycardia) History of Previous Operations: Relevant previous surgery/procedure and date(s) (History of colonoscopy Hx of endoscopy) Allergies: Allergies Allergy/AdvReac Type Severity Reaction Status Date / Time clindamycin AdvReac Mild Difficulty Verified 08/12/21 10:57 Swallowing Review of Systems Sugical H&P ROS: Negative: Constitution, Cardiovascular, Respiratory, Neurological, Psychiatric, Hem-Onc, Allergic/Immunologic, Gastrointestinal, Genitourinary, Musculoskeletal, Integumentary, Endocrine and Eyes/Ears/Nose/Throat Exam Surgical H&P Exam: Normal: HEENT, Normal: Heart, Normal: Lungs, Normal: Extremities, Normal: Abdomen, Normal: Skin and Normal: Neurological Plan Diagnosis/Plan: Unchanged I have reviewed the history and physical and performed a pertinent physical examination on my patient. No changes have occurred unless specified.
--- NOTE | 2021-12-20 11:10 | W.PM.OPN ---
Operative Note Operative Note Date of Service: 12/20/21 Narrative: Operative Information Procedure Description: EGD, Colonoscopy Indication: early satiety and crohns Anesthesia: MAC FLEXIBLE TRANSORAL UPPER GASTROINTESTINAL ENDOSCOPY AND COLONOSCOPY PROCEDURE NOTE UPPER ENDOSCOPY Consent: Indications for the procedure and potential complications of bleeding, perforation, reaction to medications and missed diagnosis were discussed with the patient and informed consent was obtained. Instrument: Olympus GIF H 190 J mid size upper endoscope Monitoring: Vital signs and clinical assessment, continuous EKG monitoring, Pulse oximetry, Carbon Dioxide monitoring and blood pressure monitoring were done throughout the procedure. Procedure: The patient was placed in the left lateral decubitis position and pre-procedure medications were administered and a bite block was placed. The endoscope was inserted into the mouth and advanced under direct vision to the third part of duodenum. A careful inspection was made as the upper endoscope was withdrawn including a retroflexed examination of the proximal stomach; Findings and interventions are described below. Findings: Larynx:normal Esophagus: GE junction at 37 cm, diaphragm hiatus at 37 cm, mild esophagitis at GEJ, bx taken from here and distal and proximal esophagus in separate jars Stomach: Mild erythematous mucosa. Biopsies were obtained. Grade 2 flap valve on retroflexed examination of the cardia. Peristalsis was seen but seemed reduced. The pylorus was stretched with balloon with resistance felt at around 18 mm. Duodenum: Normal bulb and descending duodenum, bx taken, bulb seemed compressed. Intervention: Biopsies as noted above, balloon dilation COLONOSCOPY Instrument: Olympus variable stiffness pediatric scope 190L Colonoscopy Monitoring: Vital signs and clinical assessment, continuous EKG monitoring, Pulse oximetry, Carbon Dioxide monitoring and blood pressure monitoring were done throughout the procedure. Colon withdrawal time was 12 minutes. Procedure: The patient was placed in the left lateral decubitis position and pre-procedure medications were administered. After a digital rectal examination of the ano-rectum, the video colonoscope was inserted into the rectum and advanced through the colon to the cecum/TI. The colonoscope was slowly withdrawn in a retrograde panoramic fashion and the colon mucosa was carefully examined including a retroflexed view of the rectum. Findings and interventions are described below. Procedure Difficulty:easy Findings: Terminal Ileum-normal, bx taken random bx taken from right, transverse, left and rectal areas Cecum:normal Ascending Colon: normal Transverse Colon -normal Descending Colon:normal Sigmoid Colon: normal Rectum: Retroflexion with small internal hemorrhoids, grade I Anorectum - normal Colon preparation: [place] Bowel Preparation Scale Right colon; 3 Transverse colon: 3 Left colon; 3 (0 = Unprepared colon segment with mucosa not seen due to solid stool that cannot be cleared. 1 = Portion of mucosa of the colon segment seen, but other areas of the colon segment not well seen due to staining, residual stool and/or opaque liquid. 2 = Minor amount of residual staining, small fragments of stool and/or opaque liquid, but mucosa of colon segment seen well. 3 = Entire mucosa of colon segment seen well with no residual staining, small fragments of stool or opaque liquid) Impression and Post Procedure Diagnosis: Endoscopy Findings: gastritis esophagitis Colonoscopy Findings: internal hemorrhoids Plan: Await Pathology results Repeat Colonoscopy in 1-2 years or earlier if clinically indicated High fiber diet leaflet avoid straining at stool, epsom salts and sitz bath, anusol supps or cream can consider GES and duplex to r/o SMA syndrome or celiac axis compression if ongoing upper GI sx Above findings were reviewed with the patient and relevant handouts were provided if indicated.
[2021-12-20 12:11] VITALS: BP 100/62; PULSE 70; RESP 16; TEMP 36.2; O2SAT 100
[2021-12-20 12:26] VITALS: BP 115/52; PULSE 80; RESP 16; O2SAT 99
[2021-12-20 12:41] VITALS: BP 112/73; PULSE 76; RESP 18; TEMP 36.2; O2SAT 100
== END 2021-12-20 13:27 | disposition home or self-care (01) ==
PROVIDERS: Nurse Practitioner; PCP Internal Medicine; Visit Provider Internal Medicine Gastroenterology
PROC: (CPT 45380; principal; 2021-12-20 11:10)
DX: K50.80 Crohn's disease of both small and large intestine without complications (principal); K64.0 First degree hemorrhoids; R68.81 Early satiety; K29.50 Unspecified chronic gastritis without bleeding; K20.80 Other esophagitis without bleeding; K44.9 Diaphragmatic hernia without obstruction or gangrene; E55.9 Vitamin D deficiency, unspecified; F31.9 Bipolar disorder, unspecified; F90.9 Attention-deficit hyperactivity disorder, unspecified type; R00.0 Tachycardia, unspecified; R00.2 Palpitations; Z79.899 Other long term (current) drug therapy; Z88.1 Allergy status to other antibiotic agents
CPT/HCPCS: 45380; 43245; 43239; 81025; 88305; 88342; C1726; J2250

== ENCOUNTER 2022-01-31 11:54 | Outpatient (REF) | payer OTHER, SELFPAY ==
[2022-02-02 12:56] LABS: TS Negative Control Passed; TS Panel A 0; TS Panel B 0; TS Positive Control Passed; TSpotTB Negative (Negative)
== END 2022-01-31 11:55 | disposition home or self-care (01) ==
LOC: HO.MDS 11:54
PROVIDERS: Visit Provider Internal Medicine Gastroenterology
DX: K50.80 Crohn's disease of both small and large intestine without complications (principal)
CPT/HCPCS: 36415; 86481; 96365; J3380

== ENCOUNTER 2022-02-07 08:26 | Outpatient (REF) | payer OTHER, SELFPAY ==
--- NOTE | ~2022-02-07 | US_ITS ---
EXAMINATION: ULTRASOUND SMA AND DUPLEX ARTERIAL AND VENOUS SYSTEM. CLINICAL INFORMATION: Epigastric pain. COMPARISON: None TECHNIQUE: Routine Doppler ultrasound imaging of abdominal aorta and branches was performed FINDINGS: The abdominal aorta is of normal caliber with proximal peak systolic velocity proximal SMA and measures 1 50 cm/second. Peak systolic velocity distal to SMA measures 90 cm/second. Celiac artery appears patent with a peak systolic velocity of 1 77 cm/second in inspiration supine and 147/second in inspiration upright view. Superior mesenteric artery proximal measures 2 20 cm/second, midsegment measures 85 cm/second and distal segment measures 79 cm/second. Inferior mesenteric artery peak systolic velocity measures 93 cm/second. Splenic artery peak systolic velocity measures 1 39 cm/second Hepatic artery peak systolic velocity measures 1 38 cm/second. US/US SMA IMPRESSION: Normal abdominal aorta caliber and velocity. Normal caliber celiac SMA, MARC and normal velocities with no's suspicion for stenosis especially in SMA. Normal caliber splenic and hepatic artery with normal peak systolic velocity.
== END 2022-02-07 08:27 | disposition home or self-care (01) ==
LOC: HO.US 08:26
PROVIDERS: Visit Provider Internal Medicine Gastroenterology
DX: R10.13 Epigastric pain (principal)
CPT/HCPCS: 93976

== ENCOUNTER 2022-03-14 14:47 | Outpatient (REF) | payer OTHER, SELFPAY | END 2022-03-14 14:48 | disposition home or self-care (01) | LOC: HO.MDS 14:47 | PROVIDERS: Visit Provider Internal Medicine Gastroenterology | DX: K50.80 Crohn's disease of both small and large intestine without complications (principal) | CPT/HCPCS: 96365; J3380 ==

== ENCOUNTER 2022-04-27 09:58 | Outpatient (REF) | payer OTHER, SELFPAY | END 2022-04-27 09:59 | disposition home or self-care (01) | LOC: HO.MDS 09:58 | PROVIDERS: Visit Provider Internal Medicine Gastroenterology | DX: K50.80 Crohn's disease of both small and large intestine without complications (principal) | CPT/HCPCS: 96365; J3380 ==

== ENCOUNTER 2022-06-08 07:16 | Outpatient (REF) | payer OTHER, SELFPAY | END 2022-06-08 07:17 | disposition home or self-care (01) | LOC: HO.MDS 07:16 | PROVIDERS: Visit Provider Internal Medicine Gastroenterology | DX: K50.80 Crohn's disease of both small and large intestine without complications (principal) | CPT/HCPCS: 96365; J3380 ==

== ENCOUNTER 2022-07-18 12:20 | Outpatient (REF) | payer OTHER, SELFPAY | END 2022-07-18 12:21 | disposition home or self-care (01) | LOC: HO.MDS 12:20 | PROVIDERS: Visit Provider Internal Medicine Gastroenterology | DX: K50.80 Crohn's disease of both small and large intestine without complications (principal) | CPT/HCPCS: 96365; J3380 ==

== ENCOUNTER 2022-08-29 12:47 | Emergency (ER) | payer OTHER, SELFPAY ==
[2022-08-29 13:25] VITALS: BP 118/88; PULSE 88; RESP 16; TEMP 36.5; O2SAT 100; BMI 28.5
--- NOTE | 2022-08-29 13:26 | ED_ITS ---
HPI - GI Bleed General Chief complaint: GI Bleed Stated complaint: Blood In Stool Time Seen by Provider: 08/29/22 16:00 Source: patient, RN notes reviewed and old records reviewed Mode of arrival: ambulatory Limitations: no limitations History of Present Illness HPI Narrative: 37-year-old female with past medical history significant for Crohn's disease presents for evaluation of abdominal pain, bloody bowel movements. Patient reports that she noticed some lower abdominal pain that was more severe 2 days ago on Sunday. She states that her abdomen ?felt firm. ? She states after having a few bowel movements her pain lessened and her abdomen became soft again She reports that she is currently on Entyvio treatments with Dr. Serna the office and her next treatment is this 09/01/2022. She states that this morning between 8:00 a.m. and 30 this afternoon she had 6 episodes of bright red bloody diarrhea She reports mild rectal pain Patient denies any history abdominal surgeries She called her GI office and was referred to the ER Related Data Home Medications Medication Instructions Recorded Confirmed aripiprazole 2 mg tablet (Abilify) 2 mg PO BEDTIME 12/26/19 12/20/21 dextroamphetamine-amphetamine 5 mg 20 mg PO DAILY 12/26/19 12/20/21 tablet (Adderall) lamotrigine 25 mg tablet 25 mg PO DAILY 09/17/20 12/20/21 vedolizumab 300 mg intravenous 300 mg IV Q6W 06/21/21 12/20/21 solution (Entyvio) Previous Rx's Medication Instructions Recorded hyoscyamine sulfate 0.125 mg 0.125 mg PO BID-QID PRN dyspepsia 12/28/20 tablet (Levsin) #30 tabs L norgest/E estradiol-E estrad 1 tab PO DAILY #182 ea 06/21/21 0.15 mg-30 mcg (84)/10 mcg(7) tabs,3mos (Seasonique) pantoprazole 20 mg tablet,delayed 20 mg PO DAILY 90 days #90 tabs 01/26/22 release hydrocortisone 2.5 % topical cream 1 appl MS BID 5 days #30 grams 08/29/22 with perineal applicator (Anusol-HC) Allergies Allergy/AdvReac Type Severity Reaction Status Date / Time clindamycin AdvReac Mild Difficulty Verified 08/29/22 13:25 Swallowing Review of Systems Constitutional: Constitutional: Reports as per HPI, Denies chills, Denies fatigue, Denies fever(s) and Denies headache(s) ENT: Denies headache(s) Cardiovascular: Cardiovascular: Denies chest pain and Denies dyspnea Respiratory: Respiratory: Denies cough and Denies dyspnea Gastrointestinal: Gastrointestinal: Reports abdominal pain, Denies melena, Reports hematochezia, Denies constipation, Reports diarrhea and Denies vomiting Genitourinary: Genitourinary: Denies dysuria Neurologic: Denies headache(s) and Denies focal weakness Endocrine: Endocrine: Denies fatigue PMFSH Past Medical History Medical History ADHD Anal fissure Annual physical exam Bipolar 1 disorder Crohn's disease of both small and large intestine Normal pelvic exam Palpitations Plantar wart, left foot Tachycardia Surgical History History of colonoscopy Hx of endoscopy Family History Family History Father Arthritis Substance use disorder Mental health disorder Mother History of cancer Celiac disease Social History Social History Household Members: Significant Other Household Members Other:: works in [employer], will get in 07/2021 Housing: Apartment Alcohol intake: current Alcohol intake frequency: a few times a month Patient Tobacco Use Status: Never used Tobacco e-Cigarette/Vaping Use: Never Used Advance Directives: No service: No Current occupational status: employed Cognitive needs: No Hearing needs: No Vision needs: No Physical Exam Vital Signs: Vital Signs: Last Vital Signs Temp 98.0 F 08/29/22 15:45 Pulse 86 08/29/22 15:45 Resp 14 08/29/22 15:45 BP 112/78 08/29/22 15:45 Pulse Ox 100 08/29/22 15:45 O2 Del Method Room Air 08/29/22 15:45 BMI result Body Mass Index 28.5 Const: General: healthy appearing, comfortable, no acute distress, alert and awake Nutritional Appearance: well nourished Orientation/consciousness: patient oriented x3 HEENT: Head: Yes normocephalic and Yes atraumatic Eyes: Eyelids: Yes eyelids normal Conjunctivae: conjunctivae normal Sclerae: sclerae normal Corneas: corneas normal Pupils: Equal, round and reactive pupils present EOM: EOMs intact bilaterally Neck: Neck: Yes full ROM Resp: Effort & Inspection: normal respiratory effort, able to speak in complete sentences and not labored GI: Inspection: No distended Palpation (GI): Soft to palpation, not firm, Tenderness to palpation present (GI) in the RLQ and suprapubicly, no guarding and not rigid Auscultation: normoactive bowel sounds Rectal Exam - Female: abnormal visual inspection, External hemorrhoid(s) present (No active bleeding) and hemorrhoids Skin: General skin exam: no rashes or lesions noted and elasticity normal Neuro: General: patient oriented x3 Cranial nerves: Yes Equal, round and reactive pupils present and Yes Bilaterally intact EOM present Cognition (Neuro): normal cognition Course Course Course Narrative: RME: 37yo F w/PMHx Chron's dz on Entyvio, anal fissure, hemorrhoids, c/o brbpr since Sunday worsening today w/5 episodes of bloody/watery diarrhea this AM. Also reports mild abdominal pain. GI Dr. Serna aware and instructed patient to come to the ED Labs, UA ordered Full HPI, ROS and PE to be performed by primary ED provider. Medical Decision Making Medical Decision Making [facility] Narrative: 37-year-old female past medical history significant for Crohn's presents for evaluation of abdominal pain, bloody bowel movements. She is hemodynamically stable with all vital signs within normal limits. She has a mild leukocytosis of 11.0 1000. The patient's H&H is actually slightly above her baseline at 14.0. She has a mild elevation in her CRP 0.67. Electrolytes within normal limits. The patient's abdominal exam is reassuring. She does have minimal tenderness but no guarding, her abdomen is soft to palpation. No active bleeding on exam. I discussed with Dr. Serna who would like GI panel, as the patient continue treatments can lead to increase in infectious colitis. He does agree with Anusol treatments at this time. The patient is unable to give a stool sample at this time. I discussed with Dr. Ovalle and he is okay with us discharge the patient with an outpatient order for the GI and C diff panel. He will follow up the patient. The patient is quite well appearing. I also discussed with Jackelin in the lab to confirm that my order would be active if the patient came in to drop off a sample tomorrow. Differential Diagnosis Abdominal pain Crohn's Rectal bleeding Hemorrhoids Consult Healthcare Provider Management of the patient was discussed with: Immigration Case Worker (Dr. Serna, GI) Lab Data MDM Lab Attestation statement: I reviewed the patient's lab results. 08/29/22 13:36 08/29/22 13:36 Labs: Lab Results 08/29/22 08/29/22 08/29/22 Range/Units 13:36 13:36 13:36 WBC 11.0 H (4.8-10.8) X10*3/uL RBC 4.98 (4.20-5.50) X10*6/uL Hgb 14.0 (12.0-16.0) g/dl Hct 42.7 (37.0-47.0) % MCV 85.7 (80.0-98.0) fL MCH 28.1 (27.0-33.0) pg MCHC 32.8 (31.0-35.0) g/dl RDW 13.2 (11.0-16.0) % Plt Count 395 (160-400) X10*3/uL MPV 9.0 L (9.4-12.3) fL Immature Gran % (Auto) 0.4 (0.0-0.4) % Neut % (Auto) 61.2 (45-73) % Lymph % (Auto) 31.7 (20-40) % Atkinson % (Auto) 4.5 (2-11) % Eos % (Auto) 1.7 (0-4) % Baso % (Auto) 0.5 (0-2) % Lymph # (Auto) 3.5 (1.2-4.9) X10*3/uL Atkinson # (Auto) 0.5 (0.1-1.2) X10*3/uL Eos # (Auto) 0.2 (0.0-0.4) X10*3/uL Baso # (Auto) 0.1 (0.0-0.2) X10*3/uL Abs Immat Gran (auto) 0.04 H (0.00-0.03) X10*3/uL Absolute Neuts (auto) 6.7 (2.0-8.3) x10*3/uL Absolute Nucleated RBC 0.000 (0.0-0.012) X10*3/uL Nucleated RBC % (auto) 0.0 (0.0-0.2) /100WBC PT 11.3 (10.0-13.1) SEC INR 1.0 (0.9-1.1) Sodium 141 (135-145) mmol/L Potassium 3.6 (3.3-5.1) mmol/L Chloride 107 (96-108) mmol/L Carbon Dioxide 25 (22-29) mmol/L Anion Gap 13 (12-20) BUN 6 L (9-16) mg/dL Creatinine 0.76 (0.5-1.4) mg/dL Estim Creat Clear Calc 102.5 Estimated GFR > 60 Random Glucose 86 (60-115) mg/dL Calcium 9.4 (8.4-10.2) mg/dL Magnesium 2.1 (1.6-2.6) mg/dL Total Bilirubin 0.3 (0.0-1.0) mg/dL Direct Bilirubin 0.1 (0.0-0.5) mg/dL AST 13 (5-31) U/L ALT 11 (0-31) U/L Alkaline Phosphatase 69 (39-117) U/L C-Reactive Protein 0.67 H (< or = 0.50) mg/dL Total Protein 8.1 H (6.5-8.0) g/dL Albumin 4.5 (3.5-5.0) g/dL Lipase 28 (8-78) U/L Urine Color Urine Appearance Urine pH (5.0-9.0) Ur Specific Roland (1.005-1.025) Urine Protein (Neg-Trace) mg/dL Urine Glucose (UA) (Negative) mg/dL Urine Ketones (Negative) mg/dL Urine Blood (Negative) Urine Nitrite (Negative) Ur Leukocyte Esterase (Negative) 08/29/22 Range/Units 13:40 WBC (4.8-10.8) X10*3/uL RBC (4.20-5.50) X10*6/uL Hgb (12.0-16.0) g/dl Hct (37.0-47.0) % MCV (80.0-98.0) fL MCH (27.0-33.0) pg MCHC (31.0-35.0) g/dl RDW (11.0-16.0) % Plt Count (160-400) X10*3/uL MPV (9.4-12.3) fL Immature Gran % (Auto) (0.0-0.4) % Neut % (Auto) (45-73) % Lymph % (Auto) (20-40) % Atkinson % (Auto) (2-11) % Eos % (Auto) (0-4) % Baso % (Auto) (0-2) % Lymph # (Auto) (1.2-4.9) X10*3/uL Atkinson # (Auto) (0.1-1.2) X10*3/uL Eos # (Auto) (0.0-0.4) X10*3/uL Baso # (Auto) (0.0-0.2) X10*3/uL Abs Immat Gran (auto) (0.00-0.03) X10*3/uL Absolute Neuts (auto) (2.0-8.3) x10*3/uL Absolute Nucleated RBC (0.0-0.012) X10*3/uL Nucleated RBC % (auto) (0.0-0.2) /100WBC PT (10.0-13.1) SEC INR (0.9-1.1) Sodium (135-145) mmol/L Potassium (3.3-5.1) mmol/L Chloride (96-108) mmol/L Carbon Dioxide (22-29) mmol/L Anion Gap (12-20) BUN (9-16) mg/dL Creatinine (0.5-1.4) mg/dL Estim Creat Clear Calc Estimated GFR Random Glucose (60-115) mg/dL Calcium (8.4-10.2) mg/dL Magnesium (1.6-2.6) mg/dL Total Bilirubin (0.0-1.0) mg/dL Direct Bilirubin (0.0-0.5) mg/dL AST (5-31) U/L ALT (0-31) U/L Alkaline Phosphatase (39-117) U/L C-Reactive Protein (< or = 0.50) mg/dL Total Protein (6.5-8.0) g/dL Albumin (3.5-5.0) g/dL Lipase (8-78) U/L Urine Color Yellow Urine Appearance Clear Urine pH 6.5 (5.0-9.0) Ur Specific Roland <= 1.005 (1.005-1.025) Urine Protein Negative (Neg-Trace) mg/dL Urine Glucose (UA) Negative (Negative) mg/dL Urine Ketones Negative (Negative) mg/dL Urine Blood Negative (Negative) Urine Nitrite Negative (Negative) Ur Leukocyte Esterase Negative (Negative) Discharge Plan Discharge Clinical Impression: Bright red rectal bleeding, Crohn's disease Patient Disposition: Home, Self-Care Instructions: Crohn Disease (ED) Additional Instructions: Your provided with an outpatient stool sample. Please provide samples and both the orange top and the regular white top containers. Drop the sample off tomorrow morning Return for new or worsening symptoms In the meantime use Anusol cream twice daily for the next 5 days Follow-up with Dr. Serna Prescriptions: New hydrocortisone [Anusol-HC] 2.5 % cream with perineal applicator 1 appl MS BID 5 Days Qty: 30 0RF No Action hyoscyamine sulfate [Levsin] 0.125 mg tablet 0.125 mg PO BID-QID PRN (Reason: dyspepsia) Qty: 30 2RF pantoprazole 20 mg tablet,delayed release (DR/EC) 20 mg PO DAILY 90 Days Qty: 90 5RF Entyvio 300 mg recon soln 300 mg IV Q6W Rx Instructions: administer over 30 mins L norgest/e.estradiol-e.estrad [Seasonique] 0.15 mg-30 mcg (84)/10 mcg (7) tablets,dose pack,3 month 1 tab PO DAILY Qty: 182 0RF dextroamphetamine-amphetamine [Adderall] 5 mg tablet 20 mg PO DAILY aripiprazole [Abilify] 2 mg tablet 2 mg PO BEDTIME lamotrigine 25 mg tablet 25 mg PO DAILY
[2022-08-29 13:45] LABS: MANUAL DIFF FLAG NO
[2022-08-29 13:48] LABS: Basophils Absolute Auto 0.1 X10*3/uL (0.0-0.2); Basophils Percent Auto 0.5 % (0-2); Eosinophils Absolute Auto 0.2 X10*3/uL (0.0-0.4); Eosinophils Percent Auto 1.7 % (0-4); Hematocrit 42.7 % (37.0-47.0); Imm Gran Abs Auto 0.04 X10*3/uL (0.00-0.03); Imm Gran Pct Auto 0.4 % (0.0-0.4); Lymphocytes Absolute Auto 3.5 X10*3/uL (1.2-4.9); Lymphocytes Percent Auto 31.7 % (20-40); Mean Corpuscular HGB Conc 32.8 g/dl (31.0-35.0); Mean Corpuscular Hemoglobin 28.1 pg (27.0-33.0); Mean Corpuscular Volume 85.7 fL (80.0-98.0); Monocytes Absolute Auto 0.5 X10*3/uL (0.1-1.2); Monocytes Percent Auto 4.5 % (2-11); Neutrophils Absolute Auto 6.7 x10*3/uL (2.0-8.3); Neutrophils Percent Auto 61.2 % (45-73); Platelet Count 395 X10*3/uL (160-400); Red Blood Count 4.98 X10*6/uL (4.20-5.50); Red Cell Distribution Width 13.2 % (11.0-16.0)
[2022-08-29 13:53] LABS: Appearance Urine Clear; Color Urine Yellow; Glucose Urine UA Negative (Negative); Leukocyte Esterase Urine Negative (Negative); Nitrite Urine Negative (Negative); PH 6.5 (5.0-9.0); Specific Gravity - Urine <= 1.005 (1.005-1.025); Urine Blood Negative (Negative); Urine Ketones Negative (Negative); Urine Protein Negative (Neg-Trace)
[2022-08-29 13:59] LABS: Prothrombin Time 11.3 SEC (10.0-13.1)
[2022-08-29 14:04] LABS: Alanine Aminotransferase 11 U/L (0-31); Albumin Level 4.5 g/dL (3.5-5.0); Alkaline Phosphatase 69 U/L (39-117); Anion Gap 13 (12-20); Aspartate Amino Transferase 13 U/L (5-31); Bilirubin Direct 0.1 mg/dL (0.0-0.5); Bilirubin Total 0.3 mg/dL (0.0-1.0); Blood Urea Nitrogen 6 mg/dL (9-16); C Reactive Protein 0.67 mg/dL (< or = 0.50); Calcium 9.4 mg/dL (8.4-10.2); Carbon Dioxide 25 mmol/L (22-29); Chloride 107 mmol/L (96-108); Creatinine Clr Calc Pharmacy 102.5; Estimated Glomerular Filt Rate > 60; Glucose Random 86 mg/dL (60-115); Lipase 28 U/L (8-78); Magnesium 2.1 mg/dL (1.6-2.6); Potassium 3.6 mmol/L (3.3-5.1); Sodium 141 mmol/L (135-145); Total Protein 8.1 g/dL (6.5-8.0)
[2022-08-29 15:45] VITALS: BP 112/78; PULSE 86; RESP 14; TEMP 36.7; O2SAT 100
[2022-08-29 17:24] VITALS: BP 118/84; PULSE 95; RESP 16; TEMP 37.1; O2SAT 98
== END 2022-08-29 17:41 | disposition home or self-care (01) ==
PROVIDERS: Physician Assistant; Emergency Provider Emergency Medicine; PCP Internal Medicine
DX: K62.5 Hemorrhage of anus and rectum (principal); K50.90 Crohn's disease, unspecified, without complications; Z79.899 Other long term (current) drug therapy
CPT/HCPCS: 36415; 80048; 80076; 81003; 83690; 83735; 85025; 85610; 86140; 99283; 99284

== ENCOUNTER 2022-09-01 13:19 | Outpatient (REF) | payer OTHER, SELFPAY | END 2022-09-01 13:20 | disposition home or self-care (01) | LOC: HO.MDS 13:19 | PROVIDERS: Visit Provider Internal Medicine Gastroenterology | DX: K50.80 Crohn's disease of both small and large intestine without complications (principal) | CPT/HCPCS: 96365; J3380 ==

== ENCOUNTER 2022-10-16 07:10 | Outpatient (REF) | payer OTHER, SELFPAY | END 2022-10-16 07:11 | disposition home or self-care (01) | LOC: HO.MDS 07:10 | PROVIDERS: Visit Provider Internal Medicine Gastroenterology | DX: K50.80 Crohn's disease of both small and large intestine without complications (principal) | CPT/HCPCS: 96365; J3380 ==

== ENCOUNTER 2022-11-27 06:57 | Outpatient (REF) | payer OTHER, SELFPAY | END 2022-11-27 06:58 | disposition home or self-care (01) | LOC: HO.MDS 06:57 | PROVIDERS: Visit Provider Internal Medicine Gastroenterology | DX: K50.80 Crohn's disease of both small and large intestine without complications (principal) | CPT/HCPCS: 96365; J3380 ==

== ENCOUNTER 2023-01-05 06:22 | Outpatient (REF) | payer OTHER, SELFPAY ==
[2023-01-05 06:36] LABS: MANUAL DIFF FLAG NO
[2023-01-05 07:27] LABS: Basophils Absolute Auto 0.1 X10*3/uL (0.0-0.2); Basophils Percent Auto 0.6 % (0-2); Eosinophils Absolute Auto 0.2 X10*3/uL (0.0-0.4); Eosinophils Percent Auto 2.8 % (0-4); Hematocrit 40.6 % (37.0-47.0); Hemoglobin 13.3 g/dl (12.0-16.0); Imm Gran Abs Auto 0.02 X10*3/uL (0.00-0.03); Imm Gran Pct Auto 0.2 % (0.0-0.4); Lymphocytes Absolute Auto 3.2 X10*3/uL (1.2-4.9); Lymphocytes Percent Auto 38.7 % (20-40); Mean Corpuscular HGB Conc 32.8 g/dl (31.0-35.0); Mean Corpuscular Hemoglobin 27.8 pg (27.0-33.0); Mean Corpuscular Volume 84.8 fL (80.0-98.0); Mean Platelet Volume 9.7 fL (9.4-12.3); Monocytes Absolute Auto 0.6 X10*3/uL (0.1-1.2); Monocytes Percent Auto 6.7 % (2-11); Neutrophils Absolute Auto 4.2 x10*3/uL (2.0-8.3); Platelet Count 415 X10*3/uL (160-400); Red Blood Count 4.79 X10*6/uL (4.20-5.50); Red Cell Distribution Width 13.3 % (11.0-16.0); White Blood Count 8.2 X10*3/uL (4.8-10.8)
[2023-01-05 07:44] LABS: Alanine Aminotransferase 10 U/L (0-31); Albumin Level 4.1 g/dL (3.5-5.0); Alkaline Phosphatase 67 U/L (39-117); Anion Gap 14 (12-20); Aspartate Amino Transferase 14 U/L (5-31); Bilirubin Total 0.4 mg/dL (0.0-1.0); Blood Urea Nitrogen 9 mg/dL (9-16); C Reactive Protein 1.76 mg/dL (< or = 0.50); Calcium 9.2 mg/dL (8.4-10.2); Carbon Dioxide 21 mmol/L (22-29); Chloride 107 mmol/L (96-108); Estimated Glomerular Filt Rate > 60; Glucose Random 85 mg/dL (60-115); Potassium 3.6 mmol/L (3.3-5.1); Sodium 138 mmol/L (135-145); Total Protein 7.5 g/dL (6.5-8.0)
[2023-01-05 08:07] LABS: Erythrocyte Sedimentation Rate 14 MM/HR (0-20)
== END 2023-01-05 06:23 | disposition home or self-care (01) ==
LOC: HO.LAB 06:22
PROVIDERS: Visit Provider Internal Medicine Gastroenterology
DX: K52.9 Noninfective gastroenteritis and colitis, unspecified (principal); K75.81 Nonalcoholic steatohepatitis (NASH); K50.80 Crohn's disease of both small and large intestine without complications
CPT/HCPCS: 36415; 80053; 80280; 83520; 85025; 85652; 86140